=== PATIENT | female | born 1955 | race Caucasian/White ===

== ENCOUNTER 2022-06-21 21:26 | Emergency (ER) | payer BC, MEDICAID ==
[~2022-06-21] VITALS: Ht 172.7 cm; Wt 97.8 kg
[2022-06-21 21:37] VITALS: BP 157/63
[2022-06-22] MEDS ORDERED: ACETAMINOPHEN 325MG TABLET PO ONE (01:00)
[2022-06-22] MEDS ORDERED: MELO-104 MT (02:09)
== END 2022-06-22 02:25 | disposition home or self-care (01) ==
LOC: ER 21:26
DX: M25.561 Pain in right knee (principal); M25.461 Effusion, right knee; I10 Essential (primary) hypertension; E11.9 Type 2 diabetes mellitus without complications; E78.00 Pure hypercholesterolemia, unspecified; Z98.890 Other specified postprocedural states
CPT/HCPCS: 73562; 99283